=== PATIENT | male | born 1950 | race Caucasian/White ===

== ENCOUNTER → 2017-10-20 | Outpatient (CLI) | payer OTHER, MEDICARE ==
[~2017-10-20] MED LIST: IBUP200T47 PO; SULF1TAB23 PO
[2017-10-20 09:45] LABS: HEMATOCRIT 43.4 % (39.0-51.0); MEAN CELL VOLUME 93.6 FL (80.0-100.0); MEAN CORPUSCULAR HEMOGLOBIN 32.3 PG (27.0-34.0); MEAN CORPUSCULAR HGB CONC 34.5 % (32.0-36.0); MEAN PLATELET VOLUME 8.8 FL (7.0-11.0); PLATELET COUNT 201 TH/MM3 (150-450); RED BLOOD COUNT 4.64 MIL/MM3 (4.50-5.90); RED CELL DISTRIBUTION WIDTH 12.6 % (11.6-17.2); WHITE BLOOD COUNT 5.1 TH/MM3 (4.0-11.0)
[2017-10-20 09:52] LABS: PROTHROMBIN TIME - PATIENT 10.6 SEC (9.8-11.6)
[2017-10-20 10:08] LABS: BILIRUBIN, URINE NEG (NEG); BLOOD, URINE NEG (NEG); GLUCOSE,URINE NEG (NEG); KETONE, URINE NEG (NEG); MUCUS URINE FEW /lpf (OCC); NITRITE,URINE NEG (NEG); PH, URINE 6.5 (5.0-8.5); URINE COLOR LIGHT-YELLOW (YELLW/STRAW); URINE LEUKOCYTE ESTERASE NEG (NEG)
[2017-10-20 10:12] LABS: BICARBONATE 30.2 MEQ/L (21.0-32.0); CALCIUM 8.9 MG/DL (8.5-10.1); CREATININE 0.97 MG/DL (0.60-1.30)
--- NOTE | 2017-10-20 14:15 | EKG ---
Date Performed: 10/20/2017 Time Performed: 09:45:30 PTAGE: 67 years EKG: Sinus rhythm with frequent PVCs. Abnormal ECG NO PREVIOUS TRACING DOCTOR: Enrique Corcoran Interpretating Date/Time 10/20/2017 14:14:36
== END ==
LOC: CPRE 08:57
PROVIDERS: ATTEND Orthopaedic Surgery
DX: Z01.810 Encounter for preprocedural cardiovascular examination (principal); Z01.812 Encounter for preprocedural laboratory examination; M17.11 Unilateral primary osteoarthritis, right knee; M21.061 Valgus deformity, not elsewhere classified, right knee; M79.609 Pain in unspecified limb
CPT/HCPCS: 36415; 80048; 81001; 85027; 85610; 85730; 93005

== ENCOUNTER 2017-11-06 10:10 | Inpatient (IN) | payer OTHER, MEDICARE ==
[~2017-11-06] VITALS: Ht 182.9 cm; Wt 114.0 kg
[2017-11-06] MEDS ORDERED: GENTAMICIN SULFATE 80 MG/2 ML VIAL ONE (10:52)
[2017-11-06] MEDS ORDERED: LACTATED RINGER'S 1000 ML IV PRN (11:15)
[2017-11-06] MEDS ORDERED: METOPROLOL TARTRATE 25 MG TAB PO PRN (11:15)
[2017-11-06] MEDS ORDERED: ceFAZolin 2 GM PREMIX 50 ML IV SCH (11:15)
[2017-11-06] MEDS ORDERED: CHLORHEXIDINE GLUCONATE 2 % 1 PACK (2 CLOTHS) TOPICAL PRN (11:15)
[2017-11-06] MEDS ORDERED: SODIUM CHLORID 0.9% 500 ML IV PRN (11:15)
[2017-11-06] MEDS ORDERED: POVIDONE IODINE 5% (ANTISEPSIS KIT) 4 APPLICATIONS EACH NARE PRN (11:15)
[2017-11-06] MEDS ORDERED: CHLORHEXIDINE GLUCONATE 4% SOLN 120 ML BTL TOPICAL SCH (11:15)
[2017-11-06] MEDS ORDERED: EXPAREL PERI-ARTICULAR INJECTION (TOTAL VOL. 100 ML) P-ARTICULR SCH ×2 (11:30)
[2017-11-06] MEDS ORDERED: TRANEXAMIC ACID INJ 1,140 MG in SODIUM CHLORIDE 0.9% INJ 100 ML IV SCH ×2 (11:30→14:30)
[2017-11-06] MEDS ORDERED: ACETAMINOPHEN/HYDROcodone 325 MG/7.5 MG TAB PO PRN (12:15)
[2017-11-06] MEDS ORDERED: ONDANSETRON HCL 4 MG/2 ML VIAL IVP PRN (12:15)
[2017-11-06] MEDS ORDERED: MAGNESIUM HYDROXIDE SUSP 30 ML CUP PO PRN (12:15)
[2017-11-06] MEDS ORDERED: TRANEXAMIC ACID INJ 0 MG in SODIUM CHLORIDE 0.9% INJ 100 ML IV SCH (12:15)
[2017-11-06] MEDS ORDERED: MORPHINE SULFATE 4 MG/ML INJ IV PUSH PRN (12:15)
[2017-11-06] MEDS ORDERED: Post-op Orders (for Pharmacy) XX ONE (12:15)
[2017-11-06] MEDS ORDERED: ECASA81 PO (12:22)
--- NOTE | 2017-11-06 12:23 | HHI.FF ---
Face to Face Verification Diagnosis: (1) Status post total right knee replacement Physical Therapy Gait training Knee: Total knee, Protocol: Right, Gait training, Full weight bearing Right LE Weight Bearing: WB as tolerated Right LE Range of Motion: Active ROM (active, active-assisted, passive range of motion. Range of motion goal is 0 extension to 135 of flexion.) Nursing Nursing: Dressing changes (to begin on postop day 7.) Dressing Changes: Daily dressing change (to begin on postop day 7.), Coverderm/ Prim[place] Additional Instructions Steri-Strips are to be removed on postoperative day 14. I have seen patient Conrado Coon on 11/06/17. My clinical findings support the need for the requested home health care services because: Ltd mobility - disease progression Limited ability to care for self High risk of falls I certify that my clinical findings support that this patient is homebound because: Post-op weakness Unsteady gait/balance Unsafe to leave home unassisted Harsh Griffin MD (Charles) Nov 06, 2017 12:23
[2017-11-06] MEDS ORDERED: ACETAMINOPHEN 1000 MG/100 ML 100 ML IV ONE (12:32)
[2017-11-06] MEDS ORDERED: PROPOFOL 500 MG/50 ML INJ 50 ML ONE (12:32)
[2017-11-06] MEDS ORDERED: BUPIVACAINE LIPOSOME PF 1.3% 20 ML VIAL ONE (12:32)
[2017-11-06] MEDS ORDERED: FAMOTIDINE 20 MG/2 ML VIAL ONE (12:32)
--- NOTE | 2017-11-06 15:35 | HHI.PR ---
Immediate Post Op Note Procedure Date: Nov 06, 2017 Pre Op Diagnosis: (1) Primary osteoarthritis of right knee Post Op Diagnosis: (1) Primary osteoarthritis of right knee Surgeon: Garrison Griffin M.D. Mill Beam Fitter(s): JORGE ALBERTO Egan Procedure: Right total knee arthroplasty with [place] Triathlon prosthesis (uncemented) Findings: There was severe osteoarthritis in the right knee particularly in the lateral compartment but also some in the medial and patellofemoral compartments. In the lateral compartment there was extreme erosion of the posterior aspect of the tibial plateau with eburnation and osteophytes. Complications: None Specimen(s) removed: None Estimated blood loss: 250 mL Anesthesia: General, Regional Block (adductor canal block), Local (with bupivacaine liposomal) Drains: Hemovac (2) Tourniquet time (min at mmHg) None Patient to: PACU Patient Condition: Good Implant/Devices: SEE IMPLANT LOG (if applicable) Date/Time of Procedure: SEE SURGICAL CARE RECORD Harsh Griffin MD (Charles) Nov 06, 2017 15:35
--- NOTE | 2017-11-06 15:43 | PD.OP ---
Operative Report Date of Surgery: Nov 06, 2017 Preoperative Diagnosis: (1) Primary osteoarthritis of right knee Postoperative Diagnosis: (1) Primary osteoarthritis of right knee Procedure: Right total knee arthroplasty using [place] Triathlon prosthesis (uncemented) Anesthesia: Gen. after attempted spinal with supplemental local and adductor canal block regional Surgeon: Garrison Griffin M.D. Global Logistics Manager(s): JORGE ALBERTO Egan Operation and Findings: Indications and Findings: This 67-year-old man has had 15 years of right knee pain progressively worsening with increasing lateral pain. His ambulation tolerance is limited. He has difficulty with activities of late daily living including ascending and descending stairs, ascending and descending ladders and the like. His treatment has included anti-inflammatory agents, analgesics, intra-articular corticosteroids, exercise plans, ambulatory aids. These have not helped recently. Physical findings showed genu valgum with tenderness in the lateral compartment, crepitation the lateral compartment and lateral laxity. X-rays showed loss of articular cartilage to bone on bone on the lateral compartment and some osteophytes. There is eburnation laterally. Operative findings: There was severe osteoarthritis in the lateral compartment going down to expose subchondral bone lateral aspect posteriorly with erosion of the posterior tibia. There was almost no articular cartilage in the posterior three quarters of the joint. There are osteophytes medially, laterally and in the patellofemoral. There was loss of articular cartilage in the midportion of the medial femoral condyle. The patella also had erosion. The prosthesis used was a [place] Triathlon prosthesis. The femur was a size right 6 uncemented. The tibial baseplate was a size 7 Tritanium with a 9 mm cruciate retaining X3 polyethylene spacer. The patella was a size 38 mm asymmetric Tritanium backed. The patient was brought to the clean-air operating suite. A spinal anesthetic was administered as well as a regional anesthetic by abductor canal block. The position was supine with a small bolster under the hip on the operative side. A pneumatic tourniquet was applied to the upper thigh. The lower extremity was then prepped with alcohol, Hibiclens and ChloraPrep and draped in the usual manner with the knee draped free. An appropriate timeout procedure was carried out. An incision was made from about 3 fingerbreadths above the superior medial pole of patella down the tibial tubercle on the medial side. The incision was deepened through the subcutaneous tissue to the retinacular structures which were exposed medially and laterally. A medial retinacular incision was then made from the superior middle pole of patella down the tibial tubercle and up into the quadriceps tendon splitting it longitudinally and the medial one third. The patella was reflected. The infrapatellar fat pad was debulked. The anterior cruciate ligament was excised. Medial and lateral meniscectomies were initiated. Fenestrations were made in the distal femur and proximal tibia for intramedullary referencing guides. The distal femoral cutting guide and jig were then assembled for a 5, 8 mm cut. When this was fit position and placed cutting block was stabilized with pins. The jig was removed. The distal femoral cut was then completed with the oscillating saw. The sizing guide was then positioned in place along Whitesides line and the epicondylar axis and stabilized with pins. The femoral size was then determined as noted above. The 4-in-1 cutting block was then positioned in place. Anterior and posterior cuts were made followed by posterior and anterior chamfer cuts taking care to prevent injury to ligamentous structures. Osteophytes were then trimmed from the distal femur. A bone plug was then placed into the fenestration of the distal femur. The proximal tibia was then exposed. The medial and lateral meniscectomies were completed. The extramedullary proximal tibial cutting guide was then positioned in place and stabilized with a pin for rotation. The depth of cut was then verified with a stylus off the lateral side. The cutting block was stabilized with pins. The jig was removed. The depth of cut was then verified and adjusted appropriately with the use of the spacer block. The proximal tibial cut was then made with the oscillating saw taking care to prevent injury to neurovascular and ligamentous structures. Proximal tibial bone was removed. Local anesthetic was administered with Exparel in the posterior capsule. The tibial baseplate trial was then positioned in place. After verifying the appropriate size, the base plate trial was positioned in place along with its spacer. The femoral component was then impacted into place. The alignment was checked. The tibial baseplate was then pinned in place on the tibia. Attention was directed to the patella. The patella drill guide was positioned in place for the appropriate sized patella. Patellar drilling was then carried out. The trial patella was positioned in place. The knee was taken through a range of motion which was easily 0 extension to 145. The patella trial was removed. The femoral drill holes were made. The femoral trials were removed. The tibial spacer was removed. A bone plug was placed into the proximal tibia. The tibial punch was impacted through the proximal tibial punch guide. This was all removed followed by placement of the tibial drill guide. The tibial drill holes were then made. The guide was removed. The cut ends of bone were then cleaned with pulse lavage. The tibial baseplate was then impacted into place and seated appropriately. The spacer was inserted. The the femoral component was then impacted into place and seated appropriately. The patella component was then seated with the patellar vice and tightened appropriately. The knee was taken through a range of motion which was comparable to the previous range of motion with excellent stability in flexion and extension and appropriate patellofemoral tracking. The remainder of the Exparel was then injected throughout the knee as a local anesthetic. Drains were brought out the superior lateral aspect of the suprapatellar pouch. Wound closure then commenced using 0 Vicryl interrupted [id number] sutures for the capsular and fascial structures, 2-0 Vicryl interrupted simple sutures with buried knots for the subcutaneous tissues and 4- 0 Monocryl, tenuous subcuticular closure for the skin. The wound was then dressed with Steri-Strips followed by Optifoam silver impregnated dressing. Sterile soft roll with a cooling pad and Alec bandage from the base of the toes to mid thigh were then applied. Patient was then transferred from the operating room to the recovery room in satisfactory condition having tolerated procedure well. Counts are correct. Specimens: None. Estimated blood loss: 250 mL Harsh Griffin MD (Charles) Nov 06, 2017 15:43
[2017-11-06] MEDS ORDERED: HYDR-3580 PO (15:45)
[2017-11-06] MEDS ORDERED: DO NOT ADM ANY ANTICOAGULANT DRUGS PRN (15:54)
[2017-11-06] MEDS: LACTATED RINGER'S 1000 ML INJ 1,000 ML IV SCH (16:00)
[2017-11-06] MEDS ORDERED: MIDAZOLAM HCL 2 MG/2 ML VIAL ONE (16:02)
--- NOTE | 2017-11-06 16:44 | RADRPT ---
EXAM DATE/TIME: 11/06/2017 16:01 [place] COMPARISON: No previous studies available for comparison. INDICATIONS : Post operative right knee. MEDICAL HISTORY : None. SURGICAL HISTORY : None. ENCOUNTER: Initial ACUITY: 1 day PAIN SCORE: Non-responsive. LOCATION: Right knee. FINDINGS: Two view examination of the right knee demonstrates no evidence of fracture or dislocation. Right kne e arthroplasty. Postsurgical drain in place. No hardware loosening. CONCLUSION: 1. Right knee arthroplasty. Jude Duncan MD on November 06, 2017 at 16:41 Board Certified Radiologist. This report was verified electronically.
[2017-11-06 17:00] VITALS: BP 148/78; PULSE 62; RESP 18; TEMP 95.8; O2SAT 99
[2017-11-06] MEDS: KETOROLAC TROMETHAMINE 30 MG/ML (IVP) VIAL IVP SCH ×2 (17:06→22:43)
[2017-11-06] MEDS: ACETAMINOPHEN/HYDROcodone 325 MG/7.5 MG TAB PO PRN (17:07)
--- NOTE | 2017-11-06 19:37 | PD.CONS ---
HPI Service [facility] Consult Requested By Dr. Griffin. Reason for Consult Medical management. Primary Care Physician No Primary Care Physician Diagnoses: History of Present Illness This is a 67-year-old male without significant past medical history who presented to [facility] for elective right total knee arthroplasty. The patient has long-standing history of arthritis which has felt conservative measures. The patient states that at the moment the pain is controlled, denies nausea, vomiting or abdominal pain. The patient also denies headache, dizziness. As per patient report his blood pressure became elevated after surgery, but states that it is usually within normal range at home. The patient denies also chest pain or shortness of breath. Review of Systems As per history of present illness, other systems reviewed by me and negative. Past Family Social History Allergies: Coded Allergies: No Known Allergies (Unverified , 10/20/17) Past Medical History Osteoarthritis. Frequent PVCs. Past Surgical History Cholecystectomy, left knee meniscus tear repair surgery. Reported Medications Reported Meds & Active Scripts Active Hydrocodone-Acetamin 7.5-325 (Hydrocodone/Acetaminophen) 7.5 Mg-325 Mg Tablet 2 Tab PO Q4H PRN Reported Ibuprofen 200 Mg Tab 200 Mg PO Q4H PRN Active Ordered Medications Current Medications Medications (Trade) Dose Ordered Sig/Kyrie Route Start Time Stop Time Status Last Admin Lactated Ringer's 1,000 ml @ 30 mls/hr Q24H PRN IV 11/06/17 11:15 11/09/17 11:14 11/06/17 10:45 Sodium Chloride 500 ml @ 30 mls/hr [id number] PRN IV 11/06/17 11:15 11/09/17 11:14 (Lopressor) 25 mg HORIZONTAL BORING MILL OPERATOR PRN PO 11/06/17 11:15 11/09/17 11:14 (Betadine 5% Antisepsis Kit) 1 applic HORIZONTAL BORING MILL OPERATOR PRN EACH NARE 11/06/17 11:15 11/09/17 11:14 11/06/17 11:00 (Chlorhexidine 2% Cloth) 3 pack HORIZONTAL BORING MILL OPERATOR PRN TOPICAL 11/06/17 11:15 11/09/17 11:14 11/06/17 10:30 (Hibiclens 4% Top Soln) 1 applic ONCE TOPICAL 11/06/17 11:15 11/09/17 11:14 11/06/17 11:19 Cefazolin Sodium/ Dextrose 50 ml @ 100 mls/hr HORIZONTAL BORING MILL OPERATOR IV 11/06/17 11:15 11/09/17 11:14 11/06/17 12:45 Tranexamic Acid 1140 mg/Sodium Chloride 111.4 ml @ 200 mls/hr ONCE IV 11/06/17 14:30 11/06/17 20:30 11/06/17 15:45 Lactated Ringer's 1,000 ml @ 80 mls/hr [id number] IV 11/06/17 12:30 11/06/17 16:00 Cefazolin Sodium 1000 mg/Sodium Chloride 100 ml @ 200 mls/hr Q6H IV 11/06/17 20:00 11/07/17 08:29 (Morphine Inj) 4 mg Q3H PRN IV PUSH 11/06/17 12:15 (Constantia 7.5-325 Mg) 1 tab Q4H PRN PO 11/06/17 12:15 11/06/17 17:07 (Constantia 7.5-325 Mg) 2 tab Q4H PRN PO 11/06/17 12:15 (Toradol Inj) 15 mg Q6H IVP 11/06/17 17:00 11/08/17 11:01 11/06/17 17:06 (Zofran Inj) 4 mg Q6H PRN IVP 11/06/17 12:15 (Colace) 100 mg BID PO 11/07/17 21:00 (Ambien) 5 mg HS PRN PO 11/06/17 21:00 (Milk Of Magnesia Liq) 30 ml DAILY PRN PO 11/06/17 12:15 (Ecotrin Ec) 81 mg Q12H PO 11/07/17 15:00 Miscellaneous Information ALL NURSING DEPARTME... UNSCH PRN .XX 11/06/17 15:54 11/07/17 15:53 Family History Patient states his mother had heart issues and hypertension. Social History Patient has occasional alcohol. Denies smoking. Denies using illicit drug use. Physical Exam Vital Signs Vital Signs Date Time Temp Pulse Resp B/P (MAP) Pulse Ox O2 Delivery O2 Flow Rate FiO2 11/06/17 17:00 95.8 62 18 148/78 (101) 99 11/06/17 16:30 98.3 63 20 131/74 (93) 96 Room Air 11/06/17 16:15 68 20 120/68 (85) 96 11/06/17 16:00 66 20 141/91 (108) 95 Nasal Cannula 2 11/06/17 15:53 98.3 65 20 149/77 (101) 95 Nasal Cannula 2 11/06/17 10:40 98.6 67 16 155/83 (107) 96 Physical Exam GENERAL: This is a well-nourished, well-developed patient, in no apparent distress. SKIN: No rashes, ecchymoses or lesions. Cool and dry. HEAD: Atraumatic. Normocephalic. No temporal or scalp tenderness. EYES: Pupils equal round and reactive. Extraocular motions intact. No scleral icterus. No injection or drainage. ENT: Nose without bleeding, purulent drainage or septal hematoma. Throat without erythema, tonsillar hypertrophy or exudate. Uvula midline. Airway patent. NECK: Trachea midline. No JVD or lymphadenopathy. Supple, nontender, no meningeal signs. CARDIOVASCULAR: Regular rate and rhythm without murmurs, gallops, or rubs. RESPIRATORY: Clear to auscultation. Breath sounds equal bilaterally. No wheezes , rales, or rhonchi. GASTROINTESTINAL: Abdomen soft, non-tender, nondistended. No hepato-splenomegaly , or palpable masses. No guarding. MUSCULOSKELETAL: Extremities without clubbing, cyanosis, or edema. No joint tenderness, effusion, or edema noted. No calf tenderness. Negative Homans sign bilaterally. NEUROLOGICAL: Awake and alert. Cranial nerves II through XII intact. Motor and sensory grossly within normal limits. Five out of 5 muscle strength in all muscle groups. Normal speech. Imaging Last Impressions Knee X-Ray 11/06/17 1205 Signed Impressions: Service Date/Time: Monday, November 06, 2017 16:01 - CONCLUSION: 1. Right knee arthroplasty. Jude Duncan MD Assessment and Plan Problem List: (1) Primary osteoarthritis of right knee ICD Code: M17.11 - Unilateral primary osteoarthritis, right knee (2) Status post total right knee replacement ICD Code: Z96.651 - Presence of right artificial knee joint (3) Elevated blood pressure reading ICD Code: R03.0 - Elevated blood-pressure reading, without diagnosis of hypertension (4) Asymptomatic premature ventricular contractions ICD Code: I49.3 - Ventricular premature depolarization Assessment and Plan The patient status post right knee arthroplasty for also arthritis of the right knee. Management as per orthopedic surgery. Pain control as per orthopedic surgery. Patient currently on ketorolac IV Patient has had elevated blood pressure readings after surgery. Patient denies history of hypertension. Continue to monitor vital signs, will Rx Vasotec as needed for systolic blood pressure was 160. DVT prophylaxis with SCDs, chemoprophylaxis as per orthopedic surgery. Monitor on telemetry for frequent PVCs. Check EKG. Code Status Full code Discussed Condition With Patient. Bernard Lomax MD Nov 06, 2017 19:37
[2017-11-06] MEDS ORDERED: ENALAPRILAT 1.25 MG/ML VIAL IV PUSH PRN (19:45)
[2017-11-06] MEDS ORDERED: ZOLPIDEM TARTRATE 5 MG TAB PO PRN (21:00)
[2017-11-06 21:22] VITALS: PULSE 66
[2017-11-07] MEDS: LACTATED RINGER'S 1000 ML INJ 1,000 ML IV SCH ×2 (01:00→09:48)
[2017-11-07 04:31] LABS: HEMATOCRIT 36.5 % (39.0-51.0); HEMOGLOBIN 12.8 GM/DL (13.0-17.0); MEAN CELL VOLUME 92.9 FL (80.0-100.0); MEAN CORPUSCULAR HEMOGLOBIN 32.5 PG (27.0-34.0); MEAN PLATELET VOLUME 9.4 FL (7.0-11.0); PLATELET COUNT 188 TH/MM3 (150-450); RED BLOOD COUNT 3.93 MIL/MM3 (4.50-5.90); RED CELL DISTRIBUTION WIDTH 12.2 % (11.6-17.2); WHITE BLOOD COUNT 12.5 TH/MM3 (4.0-11.0)
[2017-11-07 05:00] LABS: ALBUMIN 3.4 GM/DL (3.4-5.0); AST (GOT) 29 U/L (15-37); BICARBONATE 30.4 MEQ/L (21.0-32.0); BLOOD UREA NITROGEN 12 MG/DL (7-18); CALCIUM 8.8 MG/DL (8.5-10.1); CHLORIDE 106 MEQ/L (98-107); CREATININE 1.05 MG/DL (0.60-1.30); GLOMERULAR FILTRATION RATE 71 ML/MIN (>89); GLUCOSE,RANDOM 113 MG/DL (74-106); SODIUM (NA) 140 MEQ/L (136-145)
[2017-11-07 05:01] LABS: ALT (GPT) 30 U/L (12-78)
[2017-11-07] MEDS: KETOROLAC TROMETHAMINE 30 MG/ML (IVP) VIAL IVP SCH ×2 (05:01→11:00)
[2017-11-07 05:03] LABS: ALKALINE PHOSPHATASE 64 U/L (45-117); TOTAL BILIRUBIN ADULT 0.4 MG/DL (0.2-1.0); TOTAL PROTEIN 6.1 GM/DL (6.4-8.2)
--- NOTE | 2017-11-07 06:06 | PD.ORT.PN ---
Subjective Post Op Day #: 1 Subjective Remarks He is doing well. He has minimal complaints related to the knee. He is happy with his results so far. Range of Motion 0-97. Distance Walked 40 feet with PT. Objective Vitals Vital Signs Date Time Temp Pulse Resp B/P (MAP) Pulse Ox O2 Delivery O2 Flow Rate FiO2 11/07/17 04:00 21 11/06/17 21:22 66 11/06/17 17:00 95.8 62 18 148/78 (101) 99 11/06/17 16:30 98.3 63 20 131/74 (93) 96 Room Air 11/06/17 16:15 68 20 120/68 (85) 96 11/06/17 16:00 66 20 141/91 (108) 95 Nasal Cannula 2 11/06/17 15:53 98.3 65 20 149/77 (101) 95 Nasal Cannula 2 11/06/17 10:40 98.6 67 16 155/83 (107) 96 I/O 11/06/17 11/06/17 11/06/17 11/07/17 11/07/17 11/07/17 07:00 15:00 23:00 07:00 15:00 23:00 Intake Total 1500 ml Output Total 460 ml 120 ml Balance 1040 ml -120 ml Intake Other 1500 ml Output Drainage Total 260 ml 120 ml Estimated Blood Loss 200 ml Result Diagram: 11/07/17 0335 11/07/17 0335 Imaging Last 24 hours Impressions Knee X-Ray 11/06/17 1205 Signed Impressions: Service Date/Time: Monday, November 06, 2017 16:01 - CONCLUSION: 1. Right knee arthroplasty. Jude Duncan MD Objective Remarks He is resting comfortably, supine in bed, in the CPM. The neurovascular status is intact. The dressing is dry and intact. Assessment & Plan Ortho Post Op Day #: 1 Problem List: (1) Primary osteoarthritis of right knee ICD Codes: M17.11 - Unilateral primary osteoarthritis, right knee Status: Resolved (2) Status post total right knee replacement ICD Codes: Z96.651 - Presence of right artificial knee joint Plan: Continue postop care and PT. Assessment and Plan Condition: Good. Orthopedically stable. DVT prophylaxis: TEDs, aspirin, sequentials. Discharge plans: Home with home health care. An appointment was scheduled through the office. Prescriptions: [place] 7.5/325. His findings were discussed with him. Harsh Griffin MD (Charles) Nov 07, 2017 06:06
[2017-11-07 08:00] VITALS: BP 142/75; PULSE 59; RESP 17; TEMP 96.7; O2SAT 97
[2017-11-07 08:23] VITALS: O2SAT 98
[2017-11-07] MEDS: ACETAMINOPHEN/HYDROcodone 325 MG/7.5 MG TAB PO PRN (09:09)
[2017-11-07 11:32] VITALS: BP 129/72; PULSE 64; RESP 18; TEMP 98; O2SAT 95
[2017-11-07] MEDS ORDERED: ASPIRIN EC 81 MG TABEC PO SCH (15:00)
[2017-11-07] MEDS ORDERED: DOCUSATE SODIUM 100 MG CAP PO SCH (21:00)
--- NOTE | 2017-11-08 00:43 | EKG ---
Date Performed: 11/06/2017 Time Performed: 21:14:43 PTAGE: 67 years EKG: Sinus rhythm LOW QRS VOLTAGE IN PRECORDIAL LEADS INCOMPLETE RIGHT BUNDLE BRANCH BLOCK NONSPECIFIC T-WAVE ABNORMAL ITY BORDERLINE ECG PREVIOUS TRACING : 10/20/2017 09.45 Compared to prior tracing, PVCs no longer noted DOCTOR: Toni Pandey Interpretating Date/Time 11/08/2017 00:43:06
--- NOTE | 2017-11-09 08:37 | HHI.DS ---
Discharge Summary Admission Date Nov 06, 2017 at 10:10 Discharge Date: Nov 07, 2017 Admitting Diagnosis Primary osteoarthritis, right knee. Diagnosis: (1) Primary osteoarthritis of right knee Diagnosis: Principal ICD Codes: M17.11 - Unilateral primary osteoarthritis, right knee Status: Resolved (2) Status post total right knee replacement Diagnosis: Principal ICD Codes: Z96.651 - Presence of right artificial knee joint Procedures Right total knee arthroplasty using [employer] Triathlon prosthesis (uncemented) Brief History This is a 67 year old male patient has had long-standing pain in his right knee nonresponsive to conservative measures secondary to osteoarthritis. He has been treated with anti-inflammatory agents, analgesics, activity modification, external supports without benefit. Physical findings at the time of admission showed osteophytes, limited motion, laxity with tenderness on motion. X-rays prior to admission showed severe osteoarthritis with loss of articular cartilage [id number], osteophytes and eburnation. CBC/BMP: 11/07/17 0335 11/07/17 0335 Significant Findings Laboratory Tests Test 11/07/17 03:35 White Blood Count 12.5 TH/MM3 (4.0-11.0) Red Blood Count 3.93 MIL/MM3 (4.50-5.90) Hemoglobin 12.8 GM/DL (13.0-17.0) Hematocrit 36.5 % (39.0-51.0) Random Glucose 113 MG/DL (74-106) Total Protein 6.1 GM/DL (6.4-8.2) Anion Gap 4 MEQ/L (5-15) Estimat Glomerular Filtration Rate 71 ML/MIN (>89) Imaging Last 72 hours Impressions Knee X-Ray 11/06/17 1205 Signed Impressions: Service Date/Time: Monday, November 06, 2017 16:01 - CONCLUSION: 1. Right knee arthroplasty. Jude Duncan MD PE at Discharge He is resting comfortably, supine in bed, in the CPM. The neurovascular status is intact. The dressing is dry and intact. Hospital Course The patient was admitted as noted above. The above noted operative procedure was carried out that day. Preoperatively prophylactic antibiotics were administered Ancef according to protocol. These were continued postoperatively. The patient also received tranexamic acid to help with hemostasis according to protocol. In the postanesthesia care unit a continuous passive motion device was initiated. Also initiated were mechanical methods of DVT prophylaxis in the form of FANI stockings and sequentials. Physical therapy was initiated on the day of surgery. On postoperative day #1 physical therapy continued. The use of the continuous passive motion device continued. DVT prophylaxis with aspirin was initiated at this time. The patient continued physical therapy throughout the hospitalization. The distance walked and range of motion improved throughout the hospitalization. The patient was discharged on postoperative day 1 with the disposition being to home with home health care. An appointment for follow-up was made prior to admission. Pt Condition on Discharge: Good Discharge Disposition: Disch w/ Home Health Serv Discharge Instructions Diet Instructions: As Tolerated, No Restrictions Activities You Can Perform: Full Weight Bearing, Shower Only-No Bath Activities to Avoid: Lifting/Bending, Strenuous Activity, Bathing, Driving Follow up Referrals: Orthopedics with Harsh Griffin MD ([place]) New Medications: Aspirin DR (Aspirin DR) 81 Mg Tabdr 81 MG PO BID for Prevent Blood Clot for 30 Days, #60 TAB Hydrocodone/Acetaminophen (Hydrocodone-Acetamin 7.5-325) 7.5 Mg-325 Mg Tablet 2 TAB PO Q4H PRN for PAIN SCALE 1 TO 10, #50 TAB Continued Medications: Ibuprofen (Ibuprofen) 200 Mg Tab 200 MG PO Q4H PRN for PAIN SCALE 1 TO 10, TAB 0 Refills Harsh Griffin MD ([facility]) Nov 09, 2017 08:37
== END 2017-11-07 14:43 | disposition home health service (06) | DRG 470 ==
LOC: HSDI 10:10 → N06A 17:02 → EDUNIT# 11-07 10:30
PROVIDERS: ADMIT Orthopaedic Surgery; ATTEND Orthopaedic Surgery
PROC: 3E0T3BZ Introduction of Anesthetic Agent into Peripheral Nerves and Plexi, Percutaneous Approach (ICD-10-PCS; 2017-11-06)
PROC: 0SRC0JA Replacement of Right Knee Joint with Synthetic Substitute, Uncemented, Open Approach (ICD-10-PCS; principal; 2017-11-06 12:35)
DX: M17.11 Unilateral primary osteoarthritis, right knee (principal); I49.3 Ventricular premature depolarization; M25.761 Osteophyte, right knee; M21.061 Valgus deformity, not elsewhere classified, right knee; R03.0 Elevated blood-pressure reading, without diagnosis of hypertension
CPT/HCPCS: 73560; 80053; 85027; 86850; 86900; 86901; 93005; 94150; C1776; C9290; J0131; J0690; J1580; J1885; J2250; J3010; J7120

== ENCOUNTER 2017-11-07 20:39 | Emergency (ER) | payer MEDICARE, OTHER ==
[~2017-11-07] VITALS: Ht 182.9 cm; Wt 113.6 kg
[~2017-11-07 20:39] MED LIST changes: +ECASA81 PO; +HYDR-3580 PO; -SULF1TAB23 PO
[2017-11-07 20:40] VITALS: BP 125/71; PULSE 74; RESP 16; TEMP 98.1; O2SAT 98
--- NOTE | 2017-11-07 21:21 | PD ---
HPI Chief Complaint: Pain: Acute or Chronic Time Seen by Provider: 20:57 Travel History International Travel<30 days: No Contact w/Intl Traveler<30days: No Traveled to known affect area: No History of Present Illness HPI 67-year-old male presents to the ED for evaluation of postoperative bleeding from the right knee. Patient underwent right total knee arthroplasty by Dr. Griffin yesterday. He was discharged this morning. He states that since about 8 AM he has been having slight oozing from the wound. He attempted to apply a secondary dressing but states that the bleeding did not improve. He states he is otherwise doing well. Denies fever, chills, chest pain, shortness of breath, abdominal pain, calf pain. He has been ambulatory on the knee. He is noted to walk with a normal gait into the emergency room. He called Dr. Griffin who recommended he come to the ED. he has follow-up with Dr. Griffin on November 22. FORMERLY [facility], [facility] Past Medical History Arthritis: Yes Asthma: No Anxiety: No Depression: No Cancer: No Cardiovascular Problems: Yes High Cholesterol: No Chemotherapy: No COPD: No Diabetes: No Diminished Hearing: No Endocrine: No Genitourinary: No Hepatitis: No Hiatal Hernia: No Immune Disorder: No Musculoskeletal: Yes (OA) Neurologic: No Psychiatric: No Reproductive: No Respiratory: No Immunizations Current: Yes Radiation Therapy: No Sleep Apnea: No Thyroid Disease: No Past Surgical History Abdominal Surgery: Yes (CHOLECYSTECTOMY) AICD: No Cardiac Surgery: No Ear Surgery: No Endocrine Surgery: No Eye Surgery: No Genitourinary Surgery: No Gynecologic Surgery: No Joint Replacement: No Oral Surgery: No Pacemaker: No Thoracic Surgery: No Social History Alcohol Use: Yes (OCCASSIONALLY) Tobacco Use: No Substance Use: No Allergies-Medications (Allergen,Severity, Reaction): Coded Allergies: No Known Allergies (Unverified , 11/07/17) Reported Meds & Prescriptions Reported Meds & Active Scripts Active Hydrocodone-Acetamin 7.5-325 (Hydrocodone/Acetaminophen) 7.5 Mg-325 Mg Tablet 2 Tab PO Q4H PRN Aspirin DR (Aspirin) 81 Mg Tabdr 81 Mg PO BID 30 Days Reported Ibuprofen 200 Mg Tab 200 Mg PO Q4H PRN Review of Systems Except as stated in HPI: all other systems reviewed are Neg Physical Exam Narrative GENERAL: Well-nourished, well-developed pleasant white male in no acute distress. SKIN: Focused skin assessment warm/dry. 15 cm surgical incision over the right anterior knee. There is a very small amount of dark blood oozing from the distal third of the wound. It is worsened by pressure but there is no arterial pulsation. HEAD: Normocephalic. EYES: No scleral icterus. No injection or drainage. NECK: Supple, trachea midline. No JVD or lymphadenopathy. CARDIOVASCULAR: Regular rate and rhythm without murmurs, gallops, or rubs. RESPIRATORY: Breath sounds clear and equal bilaterally. No accessory muscle use. GASTROINTESTINAL: Abdomen soft, non-tender, nondistended. MUSCULOSKELETAL: No cyanosis, or edema. Patient is able to flex his knee to 90 and extended to 0. He is noted to walk with a normal gait into the exam room. Homans sign negative bilaterally. BACK: Nontender without obvious deformity. No CVA tenderness. Data Data Last Documented VS Vital Signs Date Time Temp Pulse Resp B/P (MAP) Pulse Ox O2 Delivery O2 Flow Rate FiO2 11/07/17 20:40 98.1 74 16 125/71 (89) 98 Room Air MDM Medical Decision Making Medical Screen Exam Complete: Yes Emergency Medical Condition: Yes Differential Diagnosis Postoperative bleeding versus wound recheck versus dressing change versus other Narrative Course 67-year-old male presents to the ED for evaluation of postoperative bleeding from the right knee after tight total knee arthroplasty by Dr. Griffin yesterday. He was discharged this morning. He states that since about 8 AM he has been having slight oozing from the wound. He states he is otherwise doing well. He has been ambulatory on the knee. He is noted to walk with a normal gait into the exam room. He has follow-up with Dr. Griffin on November 22. Vitals reviewed. On exam there is a surgical incision over the anterior aspect of the right knee. This is entirely covered by Steri-Strips. The external dressing has a moderate amount of dark red blood on the absorptive pad. I applied pressure to the length of the suture line and noted a very small amount of oozing from the distal third of the wound. There is no pulsatile bleeding noted. Exam is otherwise unremarkable. I spoke with Dr. Griffin by phone. He recommends bulky dressing with compressive outer layer and follow-up as planned. I discussed this plan with the patient who is agreeable. The wound was dressed with multiple absorptive layers and a 4 inch Alec wrap. The patient was provided with detailed wound care instructions. We discussed reasons to return to the ED or contact Dr. Griffin. He should follow-up as planned. He indicated understanding of the instructions and is agreeable to the care plan. The patient is stable and discharged home. Diagnosis Primary Impression: Encounter for wound re-check Additional Impressions: Encounter for surgical wound dressing change Status post total right knee replacement Referrals: Harsh Griffin MD (Charles) Patient Instructions: Acute Wound Care (DC), General Instructions Additional Instructions: Rest, hydrate. Elevate the leg as possible. Return to normal, gentle activity with periods of rest as discussed. Keep the wound clean, dry and covered. Change the dressing daily, sooner if it becomes soiled or wet. If bleeding worsens or fails to resolve, contact Dr. Griffin's office. Follow-up with Dr. Griffin on November 22 as planned. Return to the ED for any urgent or emergent medical condition. Disposition: 01 DISCHARGE HOME Condition: Stable Sandra Mistry Nov 07, 2017 21:21
== END 2017-11-07 21:49 | disposition home or self-care (01) ==
LOC: NEPE 20:39
DX: L76.22 Postprocedural hemorrhage of skin and subcutaneous tissue following other procedure (principal); Z96.651 Presence of right artificial knee joint
CPT/HCPCS: 99281